=== PATIENT | male | born 1995 | race Hispanic/Latino ===

== ENCOUNTER 2022-05-01 10:57 | Emergency (ER) | payer OTHER, SELFPAY ==
--- NOTE | ~2022-05-01 | XR_ITS ---
EXAMINATION: XR finger 2nd RT min 2V DATE: 05/01/2022 11:45 INDICATION: Laceration to the dorsal aspect of the right second digit TECHNIQUE: Dorsal palmar, lateral and 2 oblique views of the right second digit were obtained COMPARISON: None FINDINGS: Slight mallet finger deformity of the right second digit. No fracture. Joint spaces are normal. Soft tissues are unremarkable with no radiopaque foreign body. IMPRESSION: 1. Slight mallet finger deformity of the right second digit which could be positional but also raises possibility of injury to the extensor tendon given the provided history of laceration to the dorsal aspect of the digit. No other acute osseous abnormality or radiopaque foreign body. Reviewed, dictated and finalized at location B. IMPRESSION: 1. Slight mallet finger deformity of the right second digit which could be posi tional but also raises possibility of injury to the extensor tendon given the p rovided history of laceration to the dorsal aspect of the digit. No other acute osseous abnormality or radiopaque foreign body.
[2022-05-01 11:06] VITALS: BP 127/84; PULSE 115; RESP 20; TEMP 36.7; O2SAT 98
--- NOTE | 2022-05-01 11:20 | ED.WOUNDLAC ---
HPI - Wound/Laceration General Chief Complaint: Wound/Laceration Stated Complaint: laceration to right finger Time Seen by Provider: 05/01/22 11:20 Source: patient Mode of arrival: ambulatory Limitations: no limitations History of Present Illness HPI narrative: 27 yo M presents with laceration to posterior aspect R index finger. He cut himself on a piece of sheet metal while at work. Bleeding is controlled. States that he is concerned for tendon injury, cannot completely straighten right index finger. Denies numbness tingling. Range of motion intact other than to distal aspect at PIP. All systems reviewed and negative except as noted above. Related Data Home Medications Medication Instructions Recorded Confirmed trazodone 100 mg tablet 100 mg PO HS 05/01/22 05/01/22 Allergies Allergy/AdvReac Type Severity Reaction Status Date / Time No Known Allergies Allergy Verified 05/01/22 11:34 Review of Systems Review of Systems: CONSTITUTIONAL: Denies fever, chills, or sweats. EYES: Denies visual changes, redness, or discharge. ENT: Denies rhinorrhea, congestion, sore throat, or otalgia. CARDIOVASCULAR: Denies chest pain, palpitations, or edema. RESPIRATORY: Denies cough or dyspnea. GASTROINTESTINAL: Denies abdominal pain, nausea, vomiting, or diarrhea. GENITOURINARY: Denies dysuria or hematuria. SKIN: Denies rash or itching. Reports laceration to right index finger. MUSCULOSKELETAL: Denies back pain, joint pain, or myalgia. NEUROLOGIC: Denies headache, numbness, or weakness. PSYCHIATRIC: Denies anxiety or depression. All other systems reviewed are negative, except as documented in HPI. PMFSH Comments At time of signature, agree with nursing past medical, surgical, social and family history. There is no relevant family history pertinent to the presenting complaint. Exam Narrative: GENERAL: This is a well-nourished, well-developed patient, in no apparent distress. HEAD: normocephalic, atraumatic. EYES: PERRL. Sclera clear/white. Vision is grossly intact. EARS: External ears normal NOSE: External nose normal NECK: Neck supple, non-tender without lymphadenopathy, masses or thyromegaly. CARDIOVASCULAR: Regular rate and rhythm without murmurs, gallops, or rubs. RESPIRATORY: Clear to auscultation. Breath sounds equal bilaterally. No wheezes, rales, or rhonchi. SKIN: warm, Dry, intact with no suspicious lesions or rash, good texture and turgor. Approximate 1 cm laceration to posterior aspect of right index finger at the PIP. Tip of right index finger is stuck in a flexed position at the PIP. NEURO: awake, alert, and oriented to person, place and time. There were no obvious focal neurologic abnormalities. EXTREMITIES: No joint tenderness, effusion, or edema noted. Course Course Level of Care: Express Care Visit Vital Signs Vital signs: Vital Signs Temperature 36.7 C 05/01/22 11:06 Pulse Rate 115 H 05/01/22 11:06 Respiratory Rate 20 05/01/22 11:06 Blood Pressure 127/84 05/01/22 11:06 Pulse Oximetry 98 05/01/22 11:06 Oxygen Delivery Room Air 05/01/22 11:06 Temperature 36.7 C 05/01/22 11:33 Pulse Rate 115 H 05/01/22 11:33 Respiratory Rate 20 05/01/22 11:33 Blood Pressure 127/84 05/01/22 11:33 Pulse Oximetry 98 05/01/22 11:33 Oxygen Delivery Room Air 05/01/22 11:33 Reviewed Procedures Laceration Laceration 1: Date: 05/01/22 Time: 12:16 Site: hand (Index finger) Side (If applicable): right Size (cm): 1 Description: linear Depth: simple, single layer Local Anesthetic: lidocaine 1% Amount of anesthesia used (mL): 1 Pre-repair: wound explored and irrigated ====== Skin Level ====== Skin layer closed with: nylon Size (cm): 5-0 Number of sutures: 4 Technique: simple, interrupted ====== Subcutaneous Layer ====== ====== Muscle Layer ====== ====== Tendon Layer =
[2022-05-01 11:33] VITALS: BP 127/84; PULSE 115; RESP 20; TEMP 36.7; O2SAT 98
== END 2022-05-01 12:28 | disposition home or self-care (01) ==
PROVIDERS: Emergency Provider Nurse Practitioner Family
DX: S61.210A Laceration without foreign body of right index finger without damage to nail, initial encounter (principal); W45.8XXA Other foreign body or object entering through skin, initial encounter; Y99.0 Civilian activity done for income or pay; S66.390A Other injury of extensor muscle, fascia and tendon of right index finger at wrist and hand level, initial encounter
CPT/HCPCS: 12001; 73140; 99213; G0463